=== PATIENT | male | born 1955 | race Two or more races ===

== ENCOUNTER 2023-12-15 16:41 | Emergency (ER) | payer OTHER ==
[~2023-12-15] VITALS: Ht 177.8 cm; Wt 87.4 kg
[2023-12-15 16:47] VITALS: TEMP 98.3
[2023-12-15 19:34] VITALS: BP 168/88; PULSE 55; RESP 16; O2SAT 97
== END 2023-12-15 20:18 | disposition home or self-care (01) ==
LOC: ER 16:42
DX: S06.0X0A Concussion without loss of consciousness, initial encounter (principal); Y04.8XXA Assault by other bodily force, initial encounter; Y93.89 Activity, other specified; Y92.89 Other specified places as the place of occurrence of the external cause; Y99.8 Other external cause status
CPT/HCPCS: 70450; 72125; 99284